=== PATIENT | male | born 1940 | race Caucasian/White ===

== ENCOUNTER → 2017-04-28 | Outpatient (CLI) | payer OTHER, MEDICARE ==
[~2017-04-28] MED LIST: ALBUAER2 INH; ALPR1TAB3 PO; ASPEC81 PO; FLM4 OP; FLUT1INH INH; ISOS60TA25 PO; MULT-506 PO; NAPR1TAB9 PO; NTRGSL/4 UT; PARO1TAB29 PO; PLV75 PO; PRLSR20 PO; ROSU40TA PO
--- NOTE | 2017-04-28 16:36 | DIAGNOSTIC IMAGING REPORT ---
CHEST 2 VIEWS ROUTINE CLINICAL HISTORY: 76 years-old Male presenting with COUGH. TECHNIQUE: PA and lateral views of the chest were obtained. COMPARISON: 08/09/2012. FINDINGS: Atherosclerosis of the aortic arch. Cardiac silhouette normal in size. Lungs and pleural spaces clear. Degenerative changes of the thoracic spine. Upper abdomen normal. IMPRESSION: 1. No acute cardiopulmonary disease. Electronically signed by: Pedro Paris M.D. 04/28/2017 4:34 PM Dictated Date/Time: 04/28/2017 4:34 PM
== END | disposition home or self-care (01) ==
LOC: C.RAD1850 16:25
PROVIDERS: ATTEND Physician Assistant
DX: R05 Cough (principal)